=== PATIENT | female | born 1955 | race Caucasian/White ===

== ENCOUNTER 2022-07-21 09:12 | Emergency (ER) | payer OTHER ==
--- OUTSIDE RECORDS SUMMARY | 2022-07-21 09:16 | XMS REPORT | Continuity of Care Document ---
:1955 Author Organization [facility] t Address [address] [place] [address] Care Team Providers Name Role Phone Jelena Jhon Attending Clinician Unavailable Mynor Panda MD Attending Clinician Raul Iyer Attending Clinician Payers Payer Name Policy Type Policy Number Effective Date Expiration Date S ource Problems Condition Condition Condition Status Onset Resolution Last Treating Co mments Source Name Details Category Date Date Treatment Clinician Date Left Left Disease Active [facility] rotator rotator 2- [place] cuff tear cuff tear 00:00: of arthropath arthropath 00 Me dicin y y e [id number] Piriformis Problem Active C ommon syndrome Spirit of left - CHI side [facility] [id number] Sciatica Problem Active Commo n of left Spirit side [facility] [id number] Primary Problem Active Comm on osteoarthr Spirit itis of - CHI right [facility] [id number] Left hand Problem Active Co mmon pain [facility] [id number] Right hand Problem Active C ommon pain [facility] [id number] Primary Problem Active Comm on osteoarthr Spirit itis of - CHI left [facility] [id number] Pain in Problem Active Comm on [id number] joint of Spirit left CHI shoulder [facility] [id number] Trigger Problem Active Commo n ring Spirit finger of - CHI left hand [facility] 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 Social History Social Habit Start Date Stop Date Quantity Comments Source History [facility] Alcohol Std Drinks of Med icine History of Tobacco Common Spirit - Use [facility] Sex Assigned At Common Sp simin - [facility] History [facility] Alcohol Binge of Medicine History [facility] Alcohol Comment of Medici ne Tobacco use and 2021-10-21 2021-10-21 Smokeless tobacco Ba or Keraderm exposure 00:00:00 00:00:00 non-user of Medicine Alcohol intake 2021-10-21 2021-10-21 Lifetime [facility] 00:00:00 00:00:00 non-drinker of Medicine (finding) History [facility] 2021-10-21 2021-10-21 1 [facility] ge Alcohol Frequency 00:00:00 00:00:00 of [facility] Smoking Status Start Date Stop Date Source Social History [facility] Medications Ordered Filled Start Stop Current Ordering Indication Dosage Frequency Signature Comments Components Source Medication Medication Date Date Medication? Clinician (SIG) Name Name Lisa Kenalog No 40mg Common (Triamcinol (Triamcinol 8-18 S pirit one) one) 00:00: - [facility] Bupivicaine Bupivicaine No 2.5mg Common Mandan Mandan 8-18 Spirit 00:00: - [facility] celecoxib Yes 200mg Take 1 Bay[facility] r (CELEBREX) 2-23 capsule by Col lege 200 MG 00:00: mouth of capsule 00 daily. Medicin e Kenalog Kenalog 0 No 40mg Common (Triamcinol (Triamcinol 2-22 S pirit one) one) 00:00: - CHI [facility] Bupivicaine Bupivicaine 0 No Common Mandan Mandan 2-22 Spirit 00:00: - CHI [facility] Kenalog Kenalog 0 No 40mg Common (Triamcinol (Triamcinol 2-22 S pirit one) one) 00:00: - CHI [facility] Bupivicaine Bupivicaine 0 No 2.5mg Common Mandan Mandan 2-22 Spirit 00:00: - CHI [facility] Kenalog Kenalog 0 No 40mg Common (Triamcinol (Triamcinol 2-22 S pirit one) one) 00:00: - [facility]I [facility] Bupivicaine Bupivicaine 0 No 2.5mg Common Mandan Mandan 2-22 Spirit 00:00: - CHI [facility] Kenalog Kenalog 0 No 40mg Common (Triamcinol (Triamcinol 2-22 S pirit one) one) 00:00: - [facility]I [facility] Bupivicaine Bupivicaine 0 No Common Mandan Mandan 2-22 Spirit 00:00: - [facility] alendronate 0 Yes TAKE ONE Ba ylor (FOSAMAX) 2-05 (1) College 70 MG 00:00: TABLET(S) of tablet 00 BY MOUTH Medicin ONCE A e WEEK 30 MINUTES BEFORE MEALS. TAKE WITH A 8 OUNCES OF WATER, DO NOT LAY DOWN FOR 30 MINUTES AFTER. bisoprolol- 0 Yes 1{tbl} Take 1 Ba ylor hydrochloro 2-03 Tablet by Col lege thiazide 00:00: mouth of (ZIAC) 00 daily. Medicin 5-6.25 MG e per tablet Kenalog Kenalog 0 No 40mg Common (Triamcinol (Triamcinol 8-09 S pirit one) one) 00:00: - [facility]I [facility] Bupivicaine Bupivicaine 2021-0 No Common Mandan Mandan 8-09 Spirit 00:00: - CHI 00 [facility] Kenalog Kenalog 2020-0 No 40mg Common (Triamcinol (Triamcinol 8-09 S pirit one) one) 00:00: - CHI 00 [facility] Bupivicaine Bupivicaine 2020-0 No 2.5mg Common Mandan Mandan 8-09 Spirit 00:00: - CHI 00 [facility] Kenalog Kenalog 2020-0 No 40mg Common (Triamcinol (Triamcinol 8-09 S pirit one) one) 00:00: - CHI 00 [facility] Bupivicaine Bupivicaine 2020-0 No 2.5mg Common Mandan Mandan 8 Spirit 00:00: - CHI 00 [facility] Kenalog Kenalog 2020-0 No 40mg Common (Triamcinol (Triamcinol 8-09 S pirit one) one) 00:00: - CHI 00 [facility] Bupivicaine Bupivicaine 2020-0 No Common Mandan Mandan 8- Spirit 00:00: - CHI 00 [facility] Celestone Celestone 2020-0 No 6mg Com mon Soluspan Soluspan 6-03 Spirit (Betamethas (Betamethas 00:00: - CHI one) one) 00 [facility] Celestone Celestone 2020-0 No 6mg Com mon Soluspan Soluspan 6-03 Spirit (Betamethas (Betamethas 00:00: - CHI one) one) 00 [facility] Lidocaine Lidocaine 2020-0 No 10mg Com mon 6-03 Spirit 00:00: - CHI 00 [facility] Lidocaine Lidocaine 2020-0 No 10mg Com mon 6-03 Spirit 00:00: - CHI 00 [facility] Celestone Celestone 2020-0 No 6mg Com mon Soluspan Soluspan 6-03 Spirit (Betamethas (Betamethas 00:00: - CHI one) one) 00 [facility] Celestone Celestone 2020-0 No 6mg Com mon Soluspan Soluspan 6-03 Spirit (Betamethas (Betamethas 00:00: - CHI one) one) 00 [facility] Lidocaine Lidocaine 2020-0 No 10mg Com 01-29 Spirit 00:00: - CHI 00 [facility] Lidocaine Lidocaine 2020-0 No 10mg Com 01-29 Spirit 00:00: - CHI 00 [facility] Lidocaine Lidocaine 2020-0 No 10mg Com 01-29 Spirit 00:00: - CHI 00 [facility] Celestone Celestone 2020-0 No 6mg Com mon Soluspan Soluspan 01-29 Spirit (Betamethas (Betamethas 00:00: - CHI one) one) 00 [facility] Celestone Celestone 2020-0 No 6mg Com mon Soluspan Soluspan 01-29 Spirit (Betamethas (Betamethas 00:00: - CHI one) one) 00 [facility] Lidocaine Lidocaine 2020-0 No 10mg Com 01-29 Spirit 00:00: - CHI 00 [facility] Celestone Celestone 2020-0 No 6mg Com mon Soluspan Soluspan 01-29 Spirit (Betamethas (Betamethas 00:00: - CHI one) one) 00 [facility] Celestone Celestone 2020-0 No 6mg Com mon Soluspan Soluspan - Spirit (Betamethas (Betamethas 00:00: - CHI one) one) 00 [facility] Lidocaine Lidocaine 2020-0 No 10mg Com 01-29 Spirit 00:00: - CHI [facility] Lidocaine Lidocaine 2020-0 No 10mg Com 01-29 Spirit 00:00: - CHI 00 [facility] gabapentin 2019- Yes 300 mg = 1 M emoria 300 MG Oral 0-15 cap, PO, l Capsule 20:55: Bedtime, # Herm coby 00 30 cap, 2 Refill(s), Pharmacy: [facility] gabapentin 2019- Yes 300 mg = 1 B aylor (NEURONTIN) 0-15 cap, PO, Yuki ege 300 MG 00:00: Bedtime, # of capsule 00 30 cap, 2 Medicin Refill(s), e Pharmacy: [facility] [place] Meloxicam Meloxicam No Meloxicam Alendronate Alendronate No Alendronat Sodium Sodium e Sodium Cosamin DS Cosamin DS No Cosamin DS tiZANidine tiZANidine No tiZANidine HCl HCl HCl Suprep Suprep No Suprep Bowel Prep Bowel Prep Bowel Prep Kit Kit Kit Bisoprolol- Bisoprolol- No Bisoprolol hydroCHLORO hydroCHLORO -hydroCHLO thiazide thiazide ROthiazide traZODone traZODone No traZODone HCl HCl HCl Bisoprolol Bisoprolol No Bisoprolol Fumarate Fumarate Fumarate Metoclopram Metoclopram No Metoclopra lavonne HCl lavonne HCl mide HCl Gabapentin Gabapentin No Gabapentin traZODone traZODone No traZODone HCl HCl HCl tiZANidine tiZANidine No tiZANidine HCl HCl HCl Suprep Suprep No Suprep Bowel Prep Bowel Prep Bowel Prep Kit Kit Kit Meloxicam Meloxicam No Meloxicam Alendronate Alendronate No Alendronat Sodium Sodium e Sodium Bisoprolol- Bisoprolol- No Bisoprolol hydroCHLORO hydroCHLORO -hydroCHLO thiazide thiazide ROthiazide Bisoprolol Bisoprolol No Bisoprolol Fumarate Fumarate Fumarate Metoclopram Metoclopram No Metoclopra lavonne HCl lavonne HCl mide HCl Cosamin DS Cosamin DS No Cosamin DS Gabapentin Gabapentin No Gabapentin Gabapentin Gabapentin No Gabapentin Suprep Suprep No Suprep Bowel Prep Bowel Prep Bowel Prep Kit Kit Kit Metoclopram Metoclopram No Metoclopra lavonne HCl lavonne HCl mide HCl Cosamin DS Cosamin DS No Cosamin DS Bisoprolol Bisoprolol No Bisoprolol Fumarate Fumarate Fumarate tiZANidine tiZANidine No tiZANidine HCl HCl HCl Bisoprolol- Bisoprolol- No Bisoprolol hydroCHLORO hydroCHLORO -hydroCHLO thiazide thiazide ROthiazide Meloxicam Meloxicam No Meloxicam traZODone traZODone No traZODone HCl HCl HCl Alendronate Alendronate No Alendronat Sodium Sodium e Sodium Meloxicam Meloxicam No Meloxicam Alendronate Alendronate No Alendronat Sodium Sodium e Sodium Gabapentin Gabapentin No Gabapentin traZODone traZODone No traZODone HCl HCl HCl tiZANidine tiZANidine No tiZANidine HCl HCl HCl Bisoprolol- Bisoprolol- No Bisoprolol hydroCHLORO hydroCHLORO -hydroCHLO thiazide thiazide ROthiazide Cosamin DS Cosamin DS No Cosamin DS Bisoprolol Bisoprolol No Bisoprolol Fumarate Fumarate Fumarate Suprep Suprep No Suprep Bowel Prep Bowel Prep Bowel Prep Kit Kit Kit Metoclopram Metoclopram No Metoclopra lavonne HCl lavonne HCl mide HCl Metoclopram Metoclopram No Metoclopra lavonne HCl lavonne HCl mide HCl Bisoprolol Bisoprolol No Bisoprolol Fumarate Fumarate Fumarate Meloxicam Meloxicam No Meloxicam Bisoprolol- Bisoprolol- No Bisoprolol hydroCHLORO hydroCHLORO -hydroCHLO thiazide thiazide ROthiazide Gabapentin Gabapentin No Gabapentin Cosamin DS Cosamin DS No Cosamin DS Suprep Suprep No Suprep Bowel Prep Bowel Prep Bowel Prep Kit Kit Kit traZODone traZODone No traZODone HCl HCl HCl tiZANidine tiZANidine No tiZANidine HCl HCl HCl Alendronate Alendronate No Alendronat Sodium Sodium e Sodium Metoclopram Metoclopram No Metoclopra lavonne HCl lavonne HCl mide HCl Bisoprolol Bisoprolol No Bisoprolol Fumarate Fumarate Fumarate Meloxicam Meloxicam No Meloxicam Bisoprolol- Bisoprolol- No Bisoprolol hydroCHLORO hydroCHLORO -hydroCHLO thiazide thiazide ROthiazide Gabapentin Gabapentin No Gabapentin Cosamin DS Cosamin DS No Cosamin DS Suprep Suprep No Suprep Bowel Prep Bowel Prep Bowel Prep Kit Kit Kit traZODone traZODone No traZODone HCl HCl HCl tiZANidine tiZANidine No tiZANidine HCl HCl HCl Alendronate Alendronate No Alendronat Sodium Sodium e Sodium Metoclopram Metoclopram No Metoclopra alvonne HCl lavonne HCl mide HCl Bisoprolol Bisoprolol No Bisoprolol Fumarate Fumarate Fumarate Meloxicam Meloxicam No Meloxicam Bisoprolol- Bisoprolol- No Bisoprolol hydroCHLORO hydroCHLORO -hydroCHLO thiazide thiazide ROthiazide Gabapentin Gabapentin No Gabapentin Cosamin DS Cosamin DS No Cosamin DS Suprep Suprep No Suprep Bowel Prep Bowel Prep Bowel Prep Kit Kit Kit traZODone traZODone No traZODone HCl HCl HCl tiZANidine tiZANidine No tiZANidine HCl HCl HCl Alendronate Alendronate No Alendronat Sodium Sodium e Sodium Meloxicam Meloxicam No Meloxicam Alendronate Alendronate No Alendronat Sodium Sodium e Sodium Cosamin DS Cosamin DS No Cosamin DS tiZANidine tiZANidine No tiZANidine HCl HCl HCl Suprep Suprep No Suprep Bowel Prep Bowel Prep Bowel Prep Kit Kit Kit Bisoprolol- Bisoprolol- No Bisoprolol hydroCHLORO hydroCHLORO -hydroCHLO thiazide thiazide ROthiazide traZODone traZODone No traZODone HCl HCl HCl Bisoprolol Bisoprolol No Bisoprolol Fumarate Fumarate Fumarate Metoclopram Metoclopram No Metoclopra lavonne HCl lavonne HCl mide HCl Gabapentin Gabapentin No Gabapentin Vital Signs Vital Name Observation Time Observation Value Comments Source height 2022-04-15 09:30:00 50 [in_i] [facility] weight 2022-04-15 09:30:00 140 [lb_av] [facility] temperature 2022-04-15 09:30:00 97.8 [degF] [facility] bmi 2022-04-15 09:30:00 39.37 kg/m2 [facility] blood pressure 2022-04-15 09:30:00 132 mm[Hg] [facility] - systolic [facility] blood pressure 2022-04-15 09:30:00 82 mm[Hg] [facility] - diastolic [facility] height 2022-03-02 09:00:00 50 [in_i] [facility] weight 2022-03-02 09:00:00 140 [lb_av] Common [facility] temperature 2022-03-02 09:00:00 98.0 [degF] Common [facility] bmi 2022-03-02 09:00:00 39.37 kg/m2 [facility] blood pressure 2022-03-02 09:00:00 134 mm[Hg] [facility] - systolic [facility] blood pressure 2022-03-02 09:00:00 84 mm[Hg] [facility] - diastolic [facility] height 2021-10-20 10:45:00 50 [in_i] [facility] weight 2021-10-20 10:45:00 140 [lb_av] [facility] temperature 2021-10-20 10:45:00 98.0 [degF] [facility] bmi 2021-10-20 10:45:00 39.37 kg/m2 [facility] height 2021-09-30 10:30:00 50 [in_i] [facility] weight 2021-09-30 10:30:00 140 [lb_av] [facility] temperature 2021-09-30 10:30:00 97.5 [degF] [facility] bmi 2021-09-30 10:30:00 39.37 kg/m2 [facility] blood pressure 2021-09-30 10:30:00 130 mm[Hg] [facility] - systolic [facility] blood pressure 2021-09-30 10:30:00 84 mm[Hg] [facility] - diastolic [facility] Systolic (mm Hg) 2020-07-29 15:59:00 Wesley rial [place] Diastolic (mm Hg) 2020-07-29 15:59:00 [facility] orial [place] Heart Rate 2020-07-29 15:59:00 [facility] Respitory Rate 2020-07-29 15:59:00 Cassi rocha [place] Height 2020-07-29 15:59:00 157.48 cm [facility] Weight 2020-07-29 15:59:00 [facility] BMI Calculated 2020-07-29 15:59:00 Memabigail al [place] Systolic (mm Hg) 2020-06-12 19:40:00 Wesley rial [place] Diastolic (mm Hg) 2020-06-12 19:40:00 [facility] orial [place] Heart Rate 2020-06-12 19:40:00 [facility] Resp[facility] Rate 2020-06-12 19:40:00 Cassi Segoviaann Procedures Procedure Date / Time Performed Performing Clinician [facility] e Amputation mid-thigh [facility] Plan of Care Planned Activity Planned Date Details Comments Source Future Scheduled 2021-10-21 Screening for [facility]ge Test 15:42:55 malignant neoplasm of Medici ne of breast (procedure) [code = 838448415] Future Scheduled 2021-10-21 COVID-19 Vaccine (1) [employer] Test 15:42:55 [code = COVID-19 of Medicine Vaccine (1)] Future Scheduled 2021-10-21 TETANUS SHOT (ADULT) [employer] Test 15:42:55 [code = TETANUS SHOT of Medi cine (ADULT)] Future Scheduled 2021-10-21 Hepatitis C [facility] Yuki ege Test 15:42:55 screening of Medicine (procedure) [code = 591776349] Future Scheduled 2021-10-21 ZOSTER VACCINE (1 of [employer] Test 15:42:55 2) [code = ZOSTER of Medicin e VACCINE (1 of 2)] Future Scheduled 2021-10-21 FALL SCREEN [code = [employer] Test 15:42:55 FALL SCREEN] of Medicine Future Scheduled 2021-10-21 Screening for [facility] [employer] [facility] Test 15:42:55 osteoporosis of Medicine (procedure) [code = 266999891] Future Scheduled 2021-10-21 Pneumococcal 65+ (1 [employer] Test 15:42:55 of 1 - PPSV23) [code of Medi cine = Pneumococcal 65+ (1 of 1 - PPSV23)] Future Scheduled 2021-10-21 MEDICARE IPPE [facility] Col lege Test 15:42:55 (WELCOME TO of Medicine MEDICARE) [code = MEDICARE IPPE (WELCOME TO MEDICARE)] Future Scheduled 2021-10-21 FLU VACCINE > 6 Postponed from [employer] Test 15:42:55 MONTHS [code = FLU 03/29/2021 of Medici ne VACCINE > 6 MONTHS] (Postpone Reason: Patient declined today) Future Scheduled 2021-10-21 Screening for [facility] Col lege Test 15:42:55 malignant neoplasm of Medici ne of colon (procedure) [code = [id number]] Encounters Start End Encounter Admission Attending Care Care Encounter Source Date/Time Date/Time Type Type Clinicians Facility Department ID 2022-03-02 Outpatient ERASTO Bowles [facility] [id number] Common 08:48:02 Jhon [facility] 2021-10-20 Outpatient STLMLC STLMLC [id number] Common 10:17:01 [facility] 2021-09-23 Outpatient STLMLC STLMLC [id number] Common 11:51:43 [id number] [facility] 2022-04-15 2022-04-15 OFFICE STLMLC STLMLC [id number] Co mmon 00:00:00 00:00:00 VISIT Spirit ESTAB PT - CHI LEVEL 4 [facility] 2022-03-02 2022-03-02 OFFICE STLMLC STLMLC [id number] Co mmon 00:00:00 00:00:00 VIS[address] [facility] PT - CHI LEVEL 4 [facility] 2021-10-23 2021-10-23 (TEL) STLMLC STLMLC [id number] Co mmon 00:00:00 00:00:00 [facility] 2021-10-21 2021-10-21 Office ALONDRA Panda [id number] [facility] 15:30:00 16:24:14 Visit Mynor B AMBULATOR [id number] College Y [id number] of [id number] Medi karissa 600 e 2021-10-20 2021-10-20 OFFICE STLMLC STLMLC [id number] Co mmon 00:00:00 00:00:00 VISIT [facility] PT - CHI LEVEL [address] [place] [address] 2021-10-06 2021-10-06 (TEL) STLMLC STLMLC [id number] Co mmon 00:00:00 00:00:00 [facility] 2021-10-01 2021-10-01 (TEL) STLMLC STLMLC [id number] Co mmon 00:00:00 00:00:00 [facility] 2021-09-30 2021-09-30 OFFICE STLMLC STLMLC [id number] Co mmon 00:00:00 00:00:00 VISIT [facility] PT - CHI LEVEL 4 [facility] 2021-09-28 2021-09-28 (TEL) STLMLC STLMLC [id number] Co mmon 00:00:00 00:00:00 [facility] 2021-04-06 2021-04-06 Outpatient STLMLC STLMLC [id number] Common 00:00:00 00:00:00 [facility] 2021-01-29 2021-01-29 Outpatient STLMLC STLMLC [id number] Common 00:00:00 00:00:00 [facility] 2020-08-27 2020-08-29 Outside nullFlavo MNA [id number] Memoria 19:23:53 05:59:59 Medical r Neurology 00 l Records [place] 2020-08-27 2020-08-28 Outpatient MHMISCHER MHMISCHER [id number] 13:23:53 23:59:59 00 2020-07-29 2020-07-30 Outpatient nullFlavo MNA [id number] Memoria 16:00:00 05:59:59 r Neurology 01 l Ana Jaime 2020-07-29 2020-07-29 Outpatient Shireen, MHMISCHER MHMISCHER [id number] 10:00:00 23:59:59 Raul 01 Raffy 2020-07-29 2020-07-29 Outpatient MHIE MHIE [id number] Memoria 10:00:00 10:00:00 01 l [place] 2020-06-12 2020-06-13 Outpatient nullFlavo MNA [id number] Memoria 19:45:00 04:59:59 r Neurology 00 l [place] 2020-06-12 2020-06-12 Outpatient Shireen MHMISCHER MHMISCHER [id number] 14:45:00 23:59:59 Raul 00 Raffy 2020-06-12 2020-06-12 Outpatient MHIE MHIE [id number] Memoria 14:45:00 14:45:00 00 l [place] 2020-06-02 2020-06-02 Outpatient STLMLC STLMLC [id number] Common 00:00:00 00:00:00 [facility] Results This patient has no known results.
[2022-07-21] MEDS ORDERED: FAMOTIDINE 20 MG/2 ML VIAL IV ONE (10:00)
[2022-07-21] MEDS ORDERED: MAGNES/ALUMIN/SIMET 30ML UCUP ONE (10:00)
[2022-07-21] MEDS ORDERED: LIDOCAINE VISCOUS 2% SOLN 15 ML UDC ONE (10:00)
[2022-07-21 10:05] LABS: Absolute Lymphocytes (CBC) 1.2 K/uL (0.7-4.9); Hematocrit 40.3 % (36.0-45.0); Lymphocytes % 22.7 % (15.3-44.8); MCV 88.2 fL (80-100); MPV 7.2 fL (7.6-11.3); RBC Red Blood Cell Count 4.57 M/uL (3.86-4.86)
[2022-07-21 10:52] LABS: Albumin 3.4 g/dL (3.4-5.0); Bilirubin Total 0.4 mg/dL (0.2-1.0); Potassium 3.6 mmol/L (3.5-5.1); Protein, Total 7.1 g/dL (6.4-8.2); Troponin High Sensitivity 4.2 pg/mL (<58.9)
--- NOTE | 2022-07-21 11:01 | EDPHYS ---
Physician Documentation [facility] Name: Jes Hayden Age: 66 yrs Sex: Female : 1955 Arrival Date: 07/21/2022 Time: 09:15 Bed 13 Private MD: ED Physician Joshua Ryan HPI: 07/21 13:22 This 66 yrs old Female presents to ER via Wheelchair with complaints of Abdominal Pain. kb 13:22 The patient presents with abdominal pain in the epigastric area. Onset: The kb symptoms/episode began/occurred 2 day(s) ago. The symptoms do not radiate. Associated signs and symptoms: none. The symptoms are described as constant. Modifying factors: The symptoms are alleviated by nothing, the symptoms are aggravated by nothing. Severity of pain: At its worst the pain was moderate in the emergency department the pain is unchanged. The patient has experienced similar episodes in the past. The patient has been recently seen by a physician: Dr. Ornelas 8 day(s) ago. Pt reports burning pain to epigastric area that has been going on for a while, but got worse 2 days ago. States she had an endoscopy on 07/[address] Ornelas and was diagnosed with an ulcer. Historical: - Allergies: 09:24 No Known Allergies; ll1 - PMHx: 09:24 None; ll1 - PSHx: 09:24 Appendectomy; B AKA; ll1 - Immunization history:: Client reports receiving the 2nd dose of the Covid vaccine. - Social history:: Smoking status: Patient denies any tobacco usage or history of. ROS: 13:21 Constitutional: Negative for fever, chills, and weight loss. kb 13:21 Abdomen/GI: Positive for abdominal pain, Negative for nausea, vomiting, and diarrhea. 13:21 All other systems are negative. Exam: 10:02 Constitutional: This is a well developed, well nourished patient who is awake, alert, kb and in no acute distress. Head/Face: Normocephalic, atraumatic. ENT: Moist Mucous membranes Cardiovascular: Regular rate and rhythm with a normal S1 and S2. No gallops, murmurs, or rubs. No pulse deficits. Respiratory: Respirations even and unlabored. No increased work of breathing. Talking in full sentences Skin: Warm, dry with normal turgor. Normal color. MS/ Extremity: Pulses equal, no cyanosis. Neurovascular intact. Full, normal range of motion. Neuro: Awake and alert, GCS 15, oriented to person, place, time, and situation. Moves all extremities. Normal gait. Psych: Awake, alert, with orientation to person, place and time. Behavior, mood, and affect are within normal limits. 10:02 ECG was reviewed by the Attending Physician. 10:02 Abdomen/GI: Inspection: abdomen appears normal, Bowel sounds: normal, Palpation: soft, in all quadrants, mild abdominal tenderness, in the epigastric area. Vital Signs: 09:25 BP 147 / 77; Pulse 83; Resp 18; Temp 98.2; Pulse Ox 92% on R/A; Weight 65.77 kg; Pain ll1 9/10; 10:00 BP 131 / 83; Pulse 79; Resp 18 S; Pulse Ox 94% ; db 11:48 BP 147 / 77; Pulse 82; Resp 16; Pulse Ox 95% on R/A; db MDM: 09:16 Patient medically screened. kb 10:03 Data reviewed: vital signs, nurses notes. kb 13:21 Data interpreted: Pulse oximetry: on room air is 95 %. Interpretation: normal. kb Counseling: I had a detailed discussion with the patient and/or guardian regarding: the historical points, exam findings, and any diagnostic results supporting the discharge/admit diagnosis, lab results, the need for outpatient follow up, a after school teacher, to return to the emergency department if symptoms worsen or persist or if there are any questions or concerns that arise at home. 07/21 09:21 Order name: CBC with Diff; Complete Time: 10:07 kb 07/21 09:21 Order name: CMP; Complete Time: 10:58 kb 07/21 09:21 Order name: Lipase; Complete Time: 10:58 kb 07/21 09:21 Order name: Troponin High Sensitivity; Complete Time: 10:58 kb 07/21 09:21 Order name: IV Saline Lock; Complete Time: 10:13 kb 07/21 09:21 Order name: Labs collected and sent; Complete Time: 10:09 kb 07/21 09:21 Order name: EKG; Complete Time: 09:21 kb 07/21 09:21 Order name: EKG - Nurse/Tech; Complete Time: :23 kb 07/21 10:09 Order name: Labs - recollect needed: please recollect green top-hemolyzed; Complete em1 Time: 10:16 EC:02 Rate is 74 beats/min. Rhythm is regular. QRS [place] is Normal. ND interval is normal at kb 154 msec. QRS interval is normal at 88 msec. QT interval is normal at 441 msec. Administered Medications: 10:09 Drug: GI Cocktail without - (Maalox Suspension 30 ml, Lidocaine Liquid 2 % 15 db ml) Route: PO; 11:48 Follow up: Response: No adverse reaction db 10:31 Drug: Pepcid (famotidine) 20 mg Route: IVP; Site: left antecubital; db 11:48 Follow up: Response: No adverse reaction db Disposition: 13:52 Co-signature as Attending Physician, Joshua Ryan MD I agree with the assessment and rt plan of care. Disposition Summary: 07/21/22 11:01 Discharge Ordered Location: Home kb Condition: Stable kb Diagnosis - Upper abdominal pain, unspecified kb Followup: kb - With: Emergency Department - When: As needed - Reason: Worsening of condition Followup: kb - With: Private Physician - When: 2 - 3 days - Reason: Recheck today's complaints, Continuance of care, Re-evaluation by your physician Followup: kb - With: Raffy Ornelas MD - When: 2 - 3 days - Reason: Recheck today's complaints Discharge Instructions: - Discharge Summary Sheet kb - Abdominal Pain, Adult, [id number] kb - Peptic Ulcer, [id number] kb Forms: - Medication Reconciliation Form kb - Thank You Letter kb - Antibiotic Education kb - Prescription Opioid Use kb Signatures: Dispatcher [employer] EDLaurie Cordoba, ALAN-C ALAN-Julio Hong em1 Duncan Grayson, RN RN ll1 Dhara Peoples, RN RN db Joshua Ryan MD MD rt
--- NOTE | 2022-07-21 11:01 | ER ---
Nurse's Notes [facility] Name: Jes Hayden Age: 66 yrs Sex: Female : 1955 Arrival Date: 07/21/2022 Time: 09:15 Bed 13 Private MD: Diagnosis: Upper abdominal pain, unspecified Presentation: 07/21 09:25 Chief complaint: Patient states: Upper abd pain for 2 days. Sent in by Dr Sood [facility] office. Coronavirus screen: Vaccine status: Patient reports receiving the 2nd dose of the covid vaccine. Client denies travel out of the [place] in the last 14 days. At this time, the client does not indicate any symptoms associated with coronavirus-19. Ebola Screen: Patient denies travel to an Ebola-affected area in the 21 days before illness onset. Initial Sepsis Screen: Does the patient meet any 2 criteria? No. Patient's initial sepsis screen is negative. Does the patient have a suspected source of infection? Yes: Acute abdominal pain. Risk Assessment: Do you want to hurt yourself or someone else? Patient reports no desire to harm self or others. Onset of symptoms was July 20, 2022. 09:25 Method Of Arrival: Wheelchair ll1 09:25 Acuity: ANT 3 ll1 Triage Assessment: 09:24 General: Appears uncomfortable, Behavior is cooperative, appropriate for age. Pain: [facility] Complains of pain in abdomen Pain currently is 9 out of 10 on a pain scale. Quality of pain is described as aching, Pain began. GI: Reports upper abdominal pain. Historical: - Allergies: 09:24 No Known Allergies; ll1 - PMHx: 09:24 None; ll1 - PSHx: 09:24 Appendectomy; B AKA; ll1 - Immunization history:: Client reports receiving the 2nd dose of the Covid vaccine. - Social history:: Smoking status: Patient denies any tobacco usage or history of. Screenin:00 Abuse screen: Denies threats or abuse. Denies injuries from another. Nutritional db screening: No deficits noted. Tuberculosis screening: No symptoms or risk factors identified. Fall Risk None identified. No fall in past 12 months (0 pts). No secondary diagnosis (0 pts). No IV (0 pts). Ambulatory Aid- None/Bed Rest/Nurse Assist (0 pts). Gait- Normal/Bed Rest/Wheelchair (0 pts) Mental Status- Oriented to own ability (0 pts). Total Bateman Fall Scale indicates No Risk (0-24 pts). Assessment: 10:10 Reassessment: Patient appears in no apparent distress at this time. Patient is alert, db oriented x 3, equal unlabored respirations, skin warm/dry/pink. epigastric pain worse today started yesterday. GI: Bowel sounds present X 4 quads. Abd is soft Abdomen is tender to palpation in epigastric area. Vital Signs: 09:25 BP 147 / 77; Pulse 83; Resp 18; Temp 98.2; Pulse Ox 92% on R/A; Weight 65.77 kg; Pain ll1 9/10; 10:00 BP 131 / 83; Pulse 79; Resp 18 S; Pulse Ox 94% ; db 11:48 BP 147 / 77; Pulse 82; Resp 16; Pulse Ox 95% on R/A; db ED Course: 09:15 Patient arrived in ED. rg4 09:16 Laur[facility]ced[facility]C [facility] kb 09:16 Joshua Ryan MD is Attending Physician. kb 09:20 Arm band placed on Patient placed in an exam room, on a stretcher. ll1 09:26 Triage completed. ll1 09:43 Dhara Peoples, RN is Primary Nurse. db 10:00 Patient has correct armband on for positive identification. Bed in low position. Call db light in reach. Side rails up X2. Pulse ox on. NIBP on. Warm blanket given. 10:10 Missed attempt(s): 20 gauge in left wrist. db 10:14 Inserted saline lock: 22 gauge in left antecubital area, using aseptic technique. Blood jd3 collected. 11:02 Raffy Ornelas MD is Referral Physician. kb 11:48 No provider procedures requiring assistance completed. IV discontinued, intact, db bleeding controlled, No redness/swelling at site. Administered Medications: 10:09 Drug: GI Cocktail without - (Maalox Suspension 30 ml, Lidocaine Liquid 2 % 15 db ml) Route: PO; 11:48 Follow up: Response: No adverse reaction db 10:31 Drug: Pepcid (famotidine) 20 mg Route: IVP; Site: left antecubital; db 11:48 Follow up: Response: No adverse reaction db Medication: 10:00 VIS not applicable for this client. db Outcome: 11:01 Discharge ordered by MD. rosado 11:48 Discharged to home via wheelchair. db 11:48 Condition: stable 11:48 Discharge instructions given to patient, Instructed on discharge instructions, follow up and referral plans. 11:49 Patient left the ED. db Signatures: Laurie Salcedo, ALAN-C ALAN-Sofie Dasilva rg4 Allan Black RN RN jDuncan Noonan RN RN ll1 Dhara Peoples RN RN db
[2022-07-21 11:59] VITALS: TEMP 98.2
[2022-07-21 12:10] VITALS: BP 147/77; O2SAT 95
--- NOTE | 2022-07-26 13:00 | EKG ---
Test Date: 2022-07-21 Test Time: 09:49:00 [employer] Service Technician: HILARIO MEASUREMENT RESULTS: Intervals: Rate: 74 CT: 154 QRSD: 88 QT: 398 QTc: 441 [place]: P: 8 CT: 154 QRS: 9 T: 23 INTERPRETIVE STATEMENTS: Normal sinus rhythm Low voltage QRS Borderline ECG No previous ECG available for comparison Electronically Signed On 07-26-22 12:54:17 ENVIRONMENTAL AIDE by Logan Muñoz
== END 2022-07-21 11:49 | disposition home or self-care (01) ==
LOC: ER 09:12
DX: R10.13 Epigastric pain (principal)
CPT/HCPCS: 36415; 80053; 83690; 84484; 85025; 93005; 96374; 99284

== ENCOUNTER 2023-07-25 08:16 | Day surgery (SDC) | payer OTHER ==
[2023-07-25 08:11] LABS: Absolute Lymphocytes (CBC) 1.2 K/uL (0.7-4.9); Hematocrit 39.4 % (36.0-45.0); Lymphocytes % 23.6 % (15.3-44.8); MCV 88.8 fL (80-100); MPV 6.9 fL (7.6-11.3); Platelets 257 thou/uL (152-406); RBC Red Blood Cell Count 4.43 M/uL (3.86-4.86)
--- NOTE | 2023-07-25 08:28 | RAD REPORT ---
EXAM DESCRIPTION: RAD - Chest Pa And Lat (2 Views) - 07/25/2023 8:21 am CLINICAL HISTORY: pre op for surgery Chest pain. COMPARISON: Chest Single View dated 12/02/2022; Chest Pa And Lat (2 Views) dated 02/12/2019 TECHNIQUE: PA and lateral views of the chest were obtained. FINDINGS: The lungs are hyperexpanded compatible with COPD. The heart is upper limit of normal in si ze. No fracture or aggressive bony process. IMPRESSION: COPD without acute process identified. The USPSTF recommends annual screening for lung cancer with low-dose CT (LDCT) in adults aged 50 to 80 years who have a 20 pack-year smoking history and currently smoke or have quit within the past 15 years.
[2023-07-25] MEDS: Ringers Lactate 1,000 ML IV ONE (08:29)
[2023-07-25 08:36] LABS: Potassium 4.1 mEq/L (3.5-5.1)
[2023-07-25] MEDS ORDERED: CEFOXITIN SODIUM 1 GM/VIAL ONE (08:37)
[2023-07-25] MEDS ORDERED: LIDOCAINE 2% MPF 5 ML VIAL ONE (08:39)
[2023-07-25] MEDS ORDERED: KETOROLAC 30 MG/ML INJ ONE (08:39)
[2023-07-25] MEDS ORDERED: propofoL 200 MG/20 ML VIAL IV ONE (08:39)
[2023-07-25] MEDS ORDERED: MIDAZOLAM HCL 2 MG/2 ML INJ ONE (08:39)
[2023-07-25] MEDS ORDERED: FENTANYL CITR 100 MCG/2 ML ONE (08:39)
[2023-07-25] MEDS ORDERED: BUPIVACAINE 0.5% PF 10 ML VIAL ONE (08:39)
[2023-07-25] MEDS ORDERED: HYDROCODONE/APAP 7.5/325 MG TAB PO PRN (09:28)
--- NOTE | 2023-07-25 09:31 | P.OP ---
Date of Service: 07/25/23 Preop diagnosis: Thrombosed hemorrhoid x 2 Postop diagnosis: Same Procedure performed: Exam under anesthesia, proctoscopy and complex hemorrhoidectomy x 2 Surgeon: Lonnie Dennis MD Animal Caretaker: None Estimated blood loss: Normal Specimen: Thrombosed hemorrhoid x 2 Findings: 1 hemorrhoid was in the posterior midline and one was in the anterior midline Anesthesia: General Complications: None Drains: None Fluids and blood products: Nonapplicable Disposition: Recovery room Operative note: Patient brought to the OR and placed in the supine position. General anesthesia begun. Patient placed in the right lateral position. Patient prepped and draped in the usual sterile fashion. Examiner anesthesia with proctoscopy revealed 2 thrombosed hemorrhoids. 1 hemorrhoid was in the posterior right side and the other 1 was the anterior midline. They are both complex in nature as they involve external and internal hemorrhoidal tissue component. Marcaine 0.5% infiltrated locally. Then harmonic scalpel used to excise both hemorrhoids. Bleeding controlled with cautery and 4-0 chromic sutures. Then anal packing consisting of Gelfoam Surgicel and Vaseline gauze placed to the anal canal. Sterile dressing applied. Patient awakened and taken to recovery room in good general condition. CC: Dr. Bowles's office
[2023-07-25] MEDS ORDERED: HYDROCODONE/APAP 7.5/325 MG TAB ONE (10:29)
[2023-07-25 10:54] VITALS: BP 127/64; TEMP 97; O2SAT 99
--- NOTE | 2023-07-25 16:52 | EKG ---
Test Date: 2023-07-25 Test Time: 08:59:55 Adult Protective Caseworker: LIYA MEASUREMENT RESULTS: Intervals: Rate: 74 CA: 142 QRSD: 82 QT: 390 QTc: 432 Luke: P: 10 CA: 142 QRS: 2 T: 25 INTERPRETIVE STATEMENTS: Normal sinus rhythm Low voltage QRS Borderline ECG Compared to ECG 12/02/2022 17:22:05 No significant changes Electronically Signed On 07-25-23 16:51:33 CARRIAGE SETTER by Logan Muñoz
== END 2023-07-25 10:51 | disposition home or self-care (01) ==
LOC: OR 08:16
PROVIDERS: ATTEND Surgery
PROC: 0DJD8ZZ Inspection of Lower Intestinal Tract, Via Natural or Artificial Opening Endoscopic (ICD-10-PCS; 2023-07-25)
PROC: 06BY4ZC Excision of Hemorrhoidal Plexus, Percutaneous Endoscopic Approach (ICD-10-PCS; principal; 2023-07-25 09:00)
DX: K64.5 Perianal venous thrombosis (principal)
CPT/HCPCS: 93005; 85025; 80048; 36415; 88304; 71046; 46260; 45300; J2704; J2001; J2250; J3010; J0694; J7120

== ENCOUNTER 2023-12-19 08:00 | Day surgery (SDC) | payer OTHER ==
[2023-12-19] MEDS: Zoledronic Acid/Mannitol/Water 5 MG/100 ML INFUS.BOT IV ONE (08:32)
[2023-12-19 08:40] VITALS: BP 156/56; TEMP 97.6; O2SAT 98; BMI 44.2
== END 2023-12-19 09:00 | disposition home or self-care (01) ==
LOC: DS 08:00
PROVIDERS: ATTEND Internal Medicine
DX: M81.0 Age-related osteoporosis without current pathological fracture (principal); R13.10 Dysphagia, unspecified
CPT/HCPCS: 96365; J3489

== ENCOUNTER 2024-10-09 09:21 | Emergency (ER) | payer OTHER ==
[2024-10-09 09:50] LABS: Absolute Lymphocytes (CBC) 1.4 K/uL (0.7-4.9); Absolute Monocytes 0.6 K/uL (0.1-1.3); Absolute Neutrophil 3.7 K/uL (1.8-8.0); Basophils % 0.6 % (0-1.3); Eosinophils % 0.7 % (0-4.4); Hematocrit 39.5 % (36.0-45.0); Hemoglobin 13.3 g/dL (12.0-15.0); Lymphocytes % 23.8 % (15.3-44.8); MCH 30.1 pg (27.0-35.0); MCHC 33.7 g/dL (32.0-36.0); MCV 89.2 fL (80-100); Monocytes % 10.3 % (3.3-12.3); Neutrophils % 64.6 % (41.7-73.7); Nucleated Red Blood Cells % 0.1 % (0-0); Platelets 246 thou/uL (152-406); RBC Red Blood Cell Count 4.43 M/uL (3.86-4.86); Red Cell Distribution Width 13.8 % (12.1-15.2)
[2024-10-09] MEDS ORDERED: FAMOTIDINE 20 MG/2 ML VIAL IV ONE (10:04)
[2024-10-09 10:10] LABS: Albumin 3.3 g/dL (3.4-5.0); Albumin/Globulin Ratio 0.9 (1.1-1.8); Anion Gap 8.8 mEq/L (5.0-15.0); Bilirubin Total 0.5 mg/dL (0.2-1.0); Globulin 3.8 g/dL (2.3-3.5); Potassium 3.8 mEq/L (3.5-5.1); Protein, Total 7.1 g/dL (6.4-8.2)
--- NOTE | 2024-10-09 11:03 | RAD REPORT ---
EXAM: Right upper quadrant ultrasound. CLINICAL HISTORY: Abdominal pain COMPARISON: 2023 FINDINGS: A gallstone is not seen. Gallbladder wall not thickened. Biliary tree normal caliber IMPRESSION: No significant abnormalities displayed
--- NOTE | 2024-10-09 11:03 | RAD REPORT ---
EXAMINATION: CT ABDOMEN AND PELVIS WITH CONTRAST CLINICAL INDICATION: Abdominal pain. Right abdominal pain TECHNIQUE: CT abdomen and pelvis was performed, after the administration of 100 cc Isovue-300.. Sagit tomi and coronal reconstructions were obtained. One or more of the following dose reduction techniques were used: Automated exposure control, adjustment of the mA and kV according to patient si ze, and iterative reconstruction. Unless otherwise specified, incidental findings do not require dedicated imaging follow-up. [id number]. Oral contrast was not given which limits evaluation of bowel and appendix. COMPARISON: .2022 FINDINGS: Liver, spleen, pancreas, adrenals and kidneys appear unremarkable Wall of the distal stomach appears thickened. No evidence of diverticulitis. Chronic vertebral body compression deformities. Lucency L1 vertebral body unchanged probably a hemangioma. Small umbilical hernia. Mild diastases rectus abdominis muscles. 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
--- NOTE | 2024-10-09 11:16 | EDPHYS ---
Physician Documentation [facility] Name: Jes Hayden Age: 68 yrs Sex: Female : 1955 Arrival Date: 10/09/2024 Time: 09:21 Bed 17 Private MD: ED Physician Eugene Oglesby HPI: 10/09 09:43 This 68 yrs old Female presents to ER via Wheelchair with complaints of Abdominal Pain. rn 09:43 The patient presents with abdominal pain in the right upper quadrant. Onset: The rn symptoms/episode began/occurred 1 week(s) ago. The symptoms do not radiate. Associated signs and symptoms: Pertinent positives: constipation, Pertinent negatives: blood in stools, chest pain, diarrhea, fever. The symptoms are described as achy, crampy. Modifying factors: The symptoms are alleviated by nothing, the symptoms are aggravated by nothing. Severity of pain: At its worst the pain was mild in the emergency department the pain is unchanged. The patient has not experienced similar symptoms in the past. Historical: - Allergies: 09:36 No Known Allergies; bp - Home Meds: 09:36 bisoprolol fumarate oral [Active]; bp - PMHx: 09:36 Hypertensive disorder; bp - PSHx: 09:36 Appendectomy; B AKA; bp - Immunization history:: Adult Immunizations up to date. - Infectious Disease History:: Denies. - Social history:: Smoking status: Patient denies any tobacco usage or history of. - Family history:: not pertinent. - Hospitalizations: : No recent hospitalization is reported. ROS: 09:43 Constitutional: Negative for fever, chills, and weight loss, Cardiovascular: Negative rn for chest pain, palpitations, and edema, Respiratory: Negative for shortness of breath, cough, wheezing, and pleuritic chest pain, Abdomen/GI: Positive for right upper quadrant abdominal pain and constipation Back: Negative for injury and pain, : Negative for injury, bleeding, discharge, and swelling, MS/Extremity: Negative for injury and deformity, Skin: Negative for injury, rash, and discoloration, Neuro: Negative for headache, weakness, numbness, tingling, and seizure, Exam: 09:43 Constitutional: This is a well developed, well nourished patient who is awake, alert, rn and in no acute distress. Cardiovascular: Regular rate and rhythm. No pulse deficits. Respiratory: No increased work of breathing, no retractions or nasal flaring. Abdomen/GI: Soft, mild right upper quadrant tenderness. Negative [place] Vital Signs: 09:35 BP 179 / 86; Pulse 68; Resp 16; Temp 98; Pulse Ox 97% ; bp 10:30 BP 171 / 54; Pulse 71; Resp 15; Pulse Ox 99% ; bp 11:58 BP 156 / 79; Pulse 70; Resp 15; Temp 98; Pulse Ox 94% ; ld1 MDM: 09:25 Medical Screening Exam initiated rn 11:14 Differential diagnosis: gastritis, gastroesophageal reflux disease, non-specific abd rn pain, pancreatitis, Peptic Ulcer Disease, Perf. Duodenal Ulcer, Perf. Gastric Ulcer. Data reviewed: vital signs, nurses notes, lab test result(s), radiologic studies, CT scan, ultrasound, and as a result, I will discharge patient. Counseling: I had a detailed discussion with the patient and/or guardian regarding the historical points, exam findings, and any diagnostic results supporting the discharge/admit diagnosis, lab results, radiology results, the need for outpatient follow up, to return to the emergency department if symptoms worsen or persist or if there are any questions or concerns that arise at home. Special discussion: Based on the patient's Hx, exam, and Dx evaluation, there is no indication for emergent surgery or inpatient Tx. It is understood by the patient/guardian that if the Sx's persist or worsen they need to return immediately for re-evaluation. I discussed with the patient/guardian in detail that at this point there is no indication for admission to the hospital. It is understood, however, that if the symptoms persist or worsen the patient needs to return immediately for re-evaluation. Based on the history and exam findings, there is no indication for further emergent testing or inpatient evaluation. I discussed with the patient/guardian the need to see the fur sewer for further evaluation of the symptoms. ED course: CT shows distal gastritis. Normal white count. Normal H\T\H. No blood in stool. Patient reports history of gastric ulcers but no longer takes acid medication daily. Will prescribe Protonix and request her to follow-up with GI.. 10/09 09:35 Order name: CBC with Diff; Complete Time: 10:24 rn 10/09 09:35 Order name: CMP; Complete Time: 10:24 rn 10/09 09:35 Order name: Lipase; Complete Time: 10:24 rn 10/09 09:35 Order name: CT Abd/Pelvis - IV Contrast Only; Complete Time: 11: rn 10/09 09:35 Order name: US Abdomen Limited; Complete Time: 11: rn 10/09 09:35 Order name: IV Saline Lock; Complete Time: 10: rn 10/09 09:35 Order name: Labs collected and sent; Complete Time: 10:06 rn Administered Medications: 09:45 Drug: Famotidine IVP 20 mg IVP once; dilute with 10 mL 0.9% NaCl; give over 2 minutes bp Route: IVP; Site: right forearm; 11:57 Follow up: Response: No adverse reaction ld1 11:57 Drug: GI Cocktail without - (Maalox PO 30 ml, Lidocaine Mucous Membrane 2 % 15 ld1 ml) PO once Route: PO; 11:57 Follow up: Response: No adverse reaction ld1 Disposition Summary: 10/09/24 11:16 Discharge Ordered Notes: Location: Home rn Problem: new rn Symptoms: have improved rn Condition: Stable rn Diagnosis - Acute gastritis without bleeding rn Followup: rn - With: Private Physician - When: As needed - Reason: Recheck today's complaints, Re-evaluation by your physician Discharge Instructions: - Discharge Summary Sheet rn - Gastritis, Adult rn Forms: - Medication Reconciliation Form rn - Antibiotic mechanical engineering intern - Prescription Opioid Use rn - Patient Portal Instructions rn - Leadership Thank You Letter rn Prescriptions: - Protonix 40 mg Oral Tablet - take 1 tablet ORAL route once daily; 30 tablet; Refills: 0, Product Selection rn Permitted Signatures: Dispatcher [employer] Eugene Smith MD MD rn Peltier, Brian RN RN Nichol Calvo RN RN ld1
--- NOTE | 2024-10-09 11:16 | ER ---
Nurse's Notes [facility] Name: Jes Hayden Age: 68 yrs Sex: Female : 1955 Arrival Date: 10/09/2024 Time: 09:21 Bed 17 Private MD: Diagnosis: Acute gastritis without bleeding Presentation: 10/09 09:35 Chief complaint: Patient states: RUQ PAIN x1 WK. Coronavirus screen: At this time, the bp client does not indicate any symptoms associated with coronavirus-19. Ebola Screen: No symptoms or risks identified at this time. Initial Sepsis Screen: Does the patient meet any 2 criteria? No. Patient's initial sepsis screen is negative. Does the patient have a suspected source of infection? No. Patient's initial sepsis screen is negative. Risk Assessment: Do you want to hurt yourself or someone else? Patient reports no desire to harm self or others. Onset of symptoms is unknown. 09:35 Method Of Arrival: Wheelchair bp 09:35 Acuity: ANT 3 bp Triage Assessment: 09:36 General: Appears in no apparent distress. uncomfortable, Behavior is calm, cooperative, bp appropriate for age. Pain: Complains of pain in right upper quadrant. EENT: No deficits noted. Neuro: No deficits noted. Cardiovascular: No deficits noted. Respiratory: No deficits noted. GI: Reports upper abdominal pain, Patient currently denies diarrhea, nausea, vomiting. : No signs and/or symptoms were reported regarding the genitourinary system. Derm: No deficits noted. Musculoskeletal: No deficits noted. Historical: - Allergies: 09:36 No Known Allergies; bp - Home Meds: 09:36 bisoprolol fumarate oral [Active]; bp - PMHx: 09:36 Hypertensive disorder; bp - PSHx: 09:36 Appendectomy; B AKA; bp - Immunization history:: Adult Immunizations up to date. - Infectious Disease History:: Denies. - Social history:: Smoking status: Patient denies any tobacco usage or history of. - Family history:: not pertinent. - Hospitalizations: : No recent hospitalization is reported. Screenin:38 [facility] ED Fall Risk Assessment (Adult) History of falling in the last 3 months, bp including since admission No falls in past 3 months (0 pts) Confusion or Disorientation No (0 pts) Intoxicated or Sedated No (0 pts) Impaired Gait Yes (1 pt) Mobility Assist Device Used Yes (1 pt) Altered Elimination No (0 pt) Score/Fall Risk Level 0 - 2 = Low Risk Oriented to surroundings. Abuse screen: Denies threats or abuse. Denies injuries from another. Nutritional screening: No deficits noted. Tuberculosis screening: No symptoms or risk factors identified. Assessment: 09:40 General: Appears in no apparent distress. uncomfortable, Behavior is calm, cooperative, bp appropriate for age. 10:31 Reassessment: Patient appears in no apparent distress at this time. Patient is alert, bp oriented x 3, equal unlabored respirations, skin warm/dry/pink. Vital Signs: 09:35 BP 179 / 86; Pulse 68; Resp 16; Temp 98; Pulse Ox 97% ; bp 10:30 BP 171 / 54; Pulse 71; Resp 15; Pulse Ox 99% ; bp 11:58 BP 156 / 79; Pulse 70; Resp 15; Temp 98; Pulse Ox 94% ; ld1 ED Course: 09:24 Patient arrived in ED. al6 09:25 Eugene Oglesby MD is Attending Physician. rn 09:35 Jose G Jaramillo, WEN is Primary Nurse. bp 09:36 Triage completed. bp 09:36 Arm band placed on. bp 09:38 Patient has correct armband on for positive identification. bp 09:50 Inserted saline lock: 22 gauge in right forearm, using aseptic technique. Blood bp collected. Flushed with 10 mL NS. 10:03 US Abdomen Limited In Process Unspecified. EDMS 10:55 CT Abd/Pelvis - IV Contrast Only In Process Unspecified. EDMS 11:58 No provider procedures requiring assistance completed. IV discontinued, intact, ld1 bleeding controlled, No redness/swelling at site. Pressure dressing applied. Administered Medications: 09:45 Drug: Famotidine IVP 20 mg IVP once; dilute with 10 mL 0.9% NaCl; give over 2 minutes bp Route: IVP; Site: right forearm; 11:57 Follow up: Response: No adverse reaction ld1 11:57 Drug: GI Cocktail without - (Maalox PO 30 ml, Lidocaine Mucous Membrane 2 % 15 ld1 ml) PO once Route: PO; 11:57 Follow up: Response: No adverse reaction ld1 Medication: 11:59 VIS not applicable for this client. ld1 Outcome: 11:16 Discharge ordered by . rn 11:58 Discharged to home via wheelchair, ld1 11:58 Condition: stable 11:58 Discharge instructions given to patient, Instructed on discharge instructions, follow up and referral plans. medication usage, Demonstrated understanding of instructions, follow-up care, medications, 12:00 Patient left the ED. ld1 Signatures: Dispatcher [employer] EDEugene Crawford MD MD rn Peltier, Brian RN Nichol Payne RN RN ld1 Mckenzie Prasad
[2024-10-09] MEDS ORDERED: MAGNES/ALUMIN/SIMET 30ML UCUP ONE (11:50)
[2024-10-09 13:38] VITALS: TEMP 98
[2024-10-09 13:40] VITALS: BP 156/79; O2SAT 94
== END 2024-10-09 12:00 | disposition home or self-care (01) ==
LOC: ER 09:21
DX: K29.00 Acute gastritis without bleeding (principal)
CPT/HCPCS: 85025; 36415; 83690; 80053; 74177; 76705; Q9967